=== PATIENT | female | born 1945 ===

== ENCOUNTER 2023-05-25 09:15 | Inpatient (IN) | payer OTHER ==
[~2023-05-25] VITALS: Ht 152.4 cm; Wt 81.6 kg
[2023-05-25] MEDS ORDERED: HORIZANT300 MG PO (10:33)
[2023-05-25] MEDS ORDERED: CARDIZEM CD300 MG PO (10:33)
[2023-06-01 15:57] LABS: HEMATOCRIT 36.5 % (36.0-45.00); HEMOGLOBIN 11.8 g/dL (12.0-15.00); MEAN CELL VOLUME 90.4 fL (80.00-100.00); MEAN CORPUSCULAR HEMOGLOBIN 29.3 pg (27.00-32.0); MEAN CORPUSCULAR HGB CONC 32.4 g/dl (32.0-36.0); PLATELET COUNT 228 K/uL (150-450); RED BLOOD COUNT 4.03 M/uL (4.00-6.00); RED CELL DISTRIBUTION WIDTH 15.9 % (11.5-14.5)
[2023-06-01 15:58] LABS: ALBUMIN 3.3 gm/dL (3.4-5.0); CREATININE SERUM 0.66 mg/dL (0.55-1.02); GFR 87.07; MAGNESIUM 1.8 mg/dL (1.8-2.4); PHOSPHOROUS 3.6 mg/dL (2.5-4.9); POTASSIUM 3.84 mEq/L (3.5-5.1)
[2023-06-02 06:53] LABS: HEMATOCRIT 33.9 % (36.0-45.00); HEMOGLOBIN 10.8 g/dL (12.0-15.00); MEAN CELL VOLUME 92.2 fL (80.00-100.00); MEAN CORPUSCULAR HEMOGLOBIN 29.3 pg (27.00-32.0); MEAN CORPUSCULAR HGB CONC 31.8 g/dl (32.0-36.0); PLATELET COUNT 221 K/uL (150-450); RED BLOOD COUNT 3.68 M/uL (4.00-6.00); RED CELL DISTRIBUTION WIDTH 15.9 % (11.5-14.5)
[2023-06-02 07:22] LABS: CREATININE SERUM 0.53 mg/dL (0.55-1.02); GFR 112.16; MAGNESIUM 1.8 mg/dL (1.8-2.4); PHOSPHOROUS 3.7 mg/dL (2.5-4.9); POTASSIUM 4.22 mEq/L (3.5-5.1)
[2023-06-04] MEDS ORDERED: PERCOCET 5-3251 EACH PO (13:25)
[2023-06-04] MEDS ORDERED: HYOSCYAMINE0.125 M1 SL (13:25)
== END 2023-06-04 14:14 | disposition home or self-care (01) | DRG 331 ==
LOC: O/R 06-01 06:29 → SURH 06-01 06:29 → SURG 06-01 09:15 → SURH 06-01 14:40
PROVIDERS: ADMIT Surgery; ATTEND Surgery
PROC: 0DBP4ZZ Excision of Rectum, Percutaneous Endoscopic Approach (ICD-10-PCS; 2023-06-01)
PROC: 07BC4ZZ Excision of Pelvis Lymphatic, Percutaneous Endoscopic Approach (ICD-10-PCS; 2023-06-01)
PROC: 0DJD8ZZ Inspection of Lower Intestinal Tract, Via Natural or Artificial Opening Endoscopic (ICD-10-PCS; 2023-06-01)
PROC: 0DTN4ZZ Resection of Sigmoid Colon, Percutaneous Endoscopic Approach (ICD-10-PCS; principal; 2023-06-01 14:15)
DX: C19 Malignant neoplasm of rectosigmoid junction (principal); R19.4 Change in bowel habit; R59.0 Localized enlarged lymph nodes